=== PATIENT | female | born 1980 | race African-American/Black ===

== ENCOUNTER 2017-11-21 18:42 | Emergency (ER) | payer OTHER ==
[~2017-11-21] VITALS: Ht 157.5 cm; Wt 81.7 kg
[2017-11-21 19:25] LABS: BASOPHILS # (AUTO) 0.02 x10^3/uL (0-0.1); BASOPHILS % (AUTO) 1 % (0-1); EOSINOPHILS # (AUTO) 0.16 x10^3/uL (0-0.4); EOSINOPHILS % (AUTO) 4 % (1-7); LYMPHOCYTES # (AUTO) 1.87 x10^3/uL (1-3.4); LYMPHOCYTES % (AUTO) 45 % (22-44); MD NO; MEAN CORPUSCULAR HEMOGLOBIN 26.8 pg (27.0-34.8); MEAN CORPUSCULAR HGB CONC 32.6 g/dL (32.4-35.8); MEAN CORPUSCULAR VOLUME 82.3 fL (80-100); MEAN PLATELET VOLUME 8.3 fL (7.4-10.4); MONOCYTES # (AUTO) 0.37 x10^3/uL (0.2-0.8); MONOCYTES % (AUTO) 9 % (2-9); NEUTROPHILS # (AUTO) 1.72 x10^3/uL (1.8-6.8); NEUTROPHILS % (AUTO) 42 % (42-75); PLATELET COUNT 284 x10^3/uL (130-400); RED BLOOD COUNT 4.16 x10^6/uL (3.82-5.3); RED CELL DISTRIBUTION WIDTH 13.9 % (9.6-15.2)
[2017-11-21 19:29] LABS: ALANINE AMINOTRANSFERASE 21 U/L (12-78); ALBUMIN 3.5 g/dL (3.4-5.0); ANION GAP 9 mmol/L (5-15); CALCIUM 8.6 mg/dL (8.5-10.1); CHLORIDE 111 mmol/L (98-107)
[2017-11-21 19:34] LABS: ALKALINE PHOSPHATASE 52 U/L (45-117); BILIRUBIN,TOTAL 0.3 mg/dL (0.2-1.0); TOTAL PROTEIN 7.6 g/dL (6.4-8.2)
[2017-11-21] MEDS ORDERED: LORazepam 1MG TABLET PO ONE (21:00)
[2017-11-21] MEDS ORDERED: ONDANSETRON ODT 4 MG PO PRN (21:00)
[2017-11-21] MEDS ORDERED: MAALOX/HYOSCYAMINE/LIDOCAINE 45 ML BTL PO ONE (21:00)
[2017-11-21] MEDS ORDERED: ONDANSETRON ODT 4 MG ONE (21:02)
[2017-11-21] MEDS ORDERED: LORazepam 0.5MG TABLET ONE (21:02)
[2017-11-21] MEDS ORDERED: MAALOX/HYOSCYAMINE/LIDOCAINE 45 ML BTL ONE (21:03)
[2017-11-21 21:14] VITALS: BP 112/62
== END 2017-11-21 22:04 | disposition home or self-care (01) ==
LOC: ED 21:45
DX: K29.00 Acute gastritis without bleeding (principal); F41.1 Generalized anxiety disorder
CPT/HCPCS: 36415; 80053; 83690; 84703; 85025; 85379; 93005; 99285; Q0162

== ENCOUNTER 2018-08-07 13:00 | Emergency (ER) | payer SELFPAY ==
[~2018-08-07] VITALS: Ht 154.9 cm; Wt 83.7 kg
[2018-08-07 13:56] LABS: BASOPHILS # (AUTO) 0.02 x10^3/uL (0-0.1); BASOPHILS % (AUTO) 0 % (0-1); EOSINOPHILS # (AUTO) 0.04 x10^3/uL (0-0.4); EOSINOPHILS % (AUTO) 1 % (1-7); LYMPHOCYTES % (AUTO) 30 % (22-44); MD NO; MEAN CORPUSCULAR HEMOGLOBIN 27.5 pg (27.0-34.8); MEAN CORPUSCULAR HGB CONC 32.5 g/dL (32.4-35.8); MEAN CORPUSCULAR VOLUME 84.4 fL (80-100); MEAN PLATELET VOLUME 8.5 fL (7.4-10.4); MONOCYTES % (AUTO) 10 % (2-9); NEUTROPHILS # (AUTO) 2.94 x10^3/uL (1.8-6.8); NEUTROPHILS % (AUTO) 59 % (42-75); PLATELET COUNT 266 x10^3/uL (130-400); RED BLOOD COUNT 4.37 x10^6/uL (3.82-5.3); RED CELL DISTRIBUTION WIDTH 14.6 % (9.6-15.2)
[2018-08-07 14:03] LABS: ALBUMIN 3.9 g/dL (3.4-5.0); ANION GAP 8 mmol/L (5-15); CALCIUM 8.8 mg/dL (8.5-10.1); CHLORIDE 110 mmol/L (98-107); CREATININE 0.79 mg/dL (0.55-1.02)
--- NOTE | 2018-08-07 14:06 | NUR ---
PT AMBULATORY TO ED ROOM 18 FROM [facility] AT THIS TIME IN NAD
--- NOTE | 2018-08-07 14:41 | NUR ---
PT ASSESSED BY MD PAREDES, PT AWARE OF NEED FOR UA & STOOL SAMPLE, PT IN BED, NAD, NO NEEDS AT THIS TIME, AWAITING DISPO
[2018-08-07 15:14] LABS: CULTURE INDICATED? NO; MICROSCOPIC NOT IND
[2018-08-07 15:44] VITALS: BP 134/80
--- NOTE | 2018-08-07 15:45 | NUR ---
RN ENTERED ROOM AND PT TEARFUL AND STATES SHE "FEELS REALLY WEIRD, HANDS ARE SWEATING". PT UP FOR RECHECK, TO BEDSIDE. VSS ON RA. WCTM
[2018-08-07 16:26] LABS: FREE T4 (FREE THYROXINE) 1.29 ng/dL (0.76-1.46); THYROID STIMULATING HORMONE 1.08 mIU/L (0.358-3.740)
== END 2018-08-07 17:03 | disposition home or self-care (01) ==
LOC: ED 14:40
DX: R53.1 Weakness (principal); F41.1 Generalized anxiety disorder; R19.7 Diarrhea, unspecified; R11.2 Nausea with vomiting, unspecified
CPT/HCPCS: 36415; 80048; 81003; 82040; 84439; 84443; 84703; 85025; 93005; 99284

== ENCOUNTER 2018-09-16 10:24 | Emergency (ER) | payer MEDICAID, OTHER ==
[~2018-09-16] VITALS: Ht 154.9 cm; Wt 80.7 kg
--- NOTE | 2018-09-16 11:10 | NUR ---
pt upright on gurney awake, calm & comfortable, responds approp to staff, NAD, comfort measures provided, call light within reach.
[2018-09-16] MEDS ORDERED: LORazepam 1MG TABLET ONE (11:14)
[2018-09-16] MEDS ORDERED: LORazepam 1MG TABLET PO ONE (11:30)
[2018-09-16 12:01] VITALS: BP 127/86
--- NOTE | 2018-09-16 12:01 | NUR ---
pt remains upright on gurney awake, calm & more comfortable, responds approp to staff, NAD, comfort measures provided, call light within reach.
--- NOTE | 2018-09-16 12:25 | NUR ---
Patient given discharge instructions and they have confirmed that they understand the instructions. Patient ambulatory with steady gait.
== END 2018-09-16 12:30 | disposition home or self-care (01) ==
LOC: ED 11:23
DX: F41.1 Generalized anxiety disorder (principal); R06.4 Hyperventilation; R11.2 Nausea with vomiting, unspecified; R00.2 Palpitations
CPT/HCPCS: 93005; 99284

== ENCOUNTER 2018-09-17 09:44 | Emergency (ER) | payer MEDICAID ==
[~2018-09-17] VITALS: Ht 154.9 cm; Wt 79.9 kg
--- NOTE | 2018-09-17 10:12 | NUR ---
pt seen in the er yesterday and d/c with anxiety and 1 mg ativan. at suggestion of a pharmacy she called this am only took 0.5 mg of the ativan 1 mg she was prescribed. education provided on medication. pt in bed at this time. assessment complete. pt denies sob, cp and n/v. pt states this feels like anxiety but unable to identify specific stressors that may be causing it.
[2018-09-17] MEDS ORDERED: LORazepam 2 MG/ML, 1ML ONE (10:22)
[2018-09-17] MEDS ORDERED: SODIUM CHLORIDE 0.9% 1,000ML IVBOLUS ONE (10:30)
[2018-09-17] MEDS ORDERED: LORazepam 2 MG/ML, 1ML IVPush ONE (10:30)
[2018-09-17 11:28] LABS: ALBUMIN 3.7 g/dL (3.4-5.0); ANION GAP 10 mmol/L (5-15); CALCIUM 8.7 mg/dL (8.5-10.1); CHLORIDE 106 mmol/L (98-107)
[2018-09-17 11:29] LABS: BASOPHILS % (AUTO) 0 % (0-1); EOSINOPHILS # (AUTO) 0.02 x10^3/uL (0-0.4); EOSINOPHILS % (AUTO) 1 % (1-7); LYMPHOCYTES # (AUTO) 1.01 x10^3/uL (1-3.4); LYMPHOCYTES % (AUTO) 26 % (22-44); MEAN CORPUSCULAR HGB CONC 32.1 g/dL (32.4-35.8); MEAN PLATELET VOLUME 8.3 fL (7.4-10.4); MONOCYTES # (AUTO) 0.35 x10^3/uL (0.2-0.8); MONOCYTES % (AUTO) 9 % (2-9); NEUTROPHILS # (AUTO) 2.46 x10^3/uL (1.8-6.8); NEUTROPHILS % (AUTO) 64 % (42-75); PLATELET COUNT 260 x10^3/uL (130-400); RED BLOOD COUNT 4.28 x10^6/uL (3.82-5.3); RED CELL DISTRIBUTION WIDTH 13.6 % (9.6-15.2)
[2018-09-17 11:34] LABS: ALANINE AMINOTRANSFERASE 23 U/L (12-78); ALKALINE PHOSPHATASE 58 U/L (45-117); BILIRUBIN,TOTAL 0.7 mg/dL (0.2-1.0); CREATININE 0.79 mg/dL (0.55-1.02); TOTAL PROTEIN 7.7 g/dL (6.4-8.2); TROPONIN I < 0.015 ng/mL (0.000-0.045)
[2018-09-17 11:57] VITALS: BP 128/80
[2018-09-17 12:21] LABS: MD SCAN
== END 2018-09-17 13:12 | disposition home or self-care (01) ==
LOC: ED 13:06
DX: R07.89 Other chest pain (principal); F43.0 Acute stress reaction; F41.9 Anxiety disorder, unspecified; R00.0 Tachycardia, unspecified; Z87.891 Personal history of nicotine dependence
CPT/HCPCS: 36415; 71045; 80053; 83880; 84443; 84484; 85025; 85379; 93005; 96374; 99284; J2060; J7030

== ENCOUNTER 2018-12-19 17:41 | Emergency (ER) | payer MEDICAID ==
[~2018-12-19] VITALS: Ht 154.9 cm; Wt 90.7 kg
[2018-12-19 19:24] VITALS: BP 128/78
== END 2018-12-19 19:59 | disposition home or self-care (01) ==
LOC: ED 19:40
DX: F41.1 Generalized anxiety disorder (principal); R07.89 Other chest pain
CPT/HCPCS: 36415; 80053; 81003; 83690; 83735; 84436; 84443; 84484; 84703; 85025; 93005; 99284; Q0162

== ENCOUNTER 2019-06-17 20:30 | Emergency (ER) | payer MEDICAID, OTHER ==
[~2019-06-17] VITALS: Ht 154.9 cm; Wt 86.4 kg
[~2019-06-17 20:30] MED LIST: SERT25TA PO; ZOLP-413 PO
[2019-06-17 20:34] VITALS: BP 133/85
--- NOTE | 2019-06-17 21:26 | NUR ---
PT TO ROOM FROM LOBBY VIA WHEELCHAIR W TECH AND FAMILY. NAD NOTED.
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
--- NOTE | 2019-06-17 21:51 | NUR ---
DC EDUCATION PROVIDED, PT DEMONSTRATES UNDERSTANDING. PT AMBUALTED STEADILY TO DC WITH RN AND FAMILY.
== END 2019-06-17 21:53 | disposition home or self-care (01) ==
LOC: ED 21:47
DX: S06.0X0A Concussion without loss of consciousness, initial encounter (principal); X58.XXXA Exposure to other specified factors, initial encounter; Y93.89 Activity, other specified; Y92.009 Unspecified place in unspecified non-institutional (private) residence as the place of occurrence of the external cause; Y99.8 Other external cause status
CPT/HCPCS: 99283

== ENCOUNTER 2019-07-07 01:24 | Emergency (ER) | payer OTHER ==
[~2019-07-07] VITALS: Ht 157.5 cm; Wt 97.7 kg
[2019-07-07 02:04] VITALS: BP 128/85
[2019-07-07] MEDS ORDERED: CLON0.5T PO (02:05)
[2019-07-07 02:17] LABS: BASOPHILS # (AUTO) 0.02 x10^3/uL (0-0.1); BASOPHILS % (AUTO) 1 % (0-1); EOSINOPHILS # (AUTO) 0.09 x10^3/uL (0-0.4); EOSINOPHILS % (AUTO) 2 % (1-7); LYMPHOCYTES # (AUTO) 1.96 x10^3/uL (1-3.4); LYMPHOCYTES % (AUTO) 37 % (22-44); MD NO; MEAN CORPUSCULAR HEMOGLOBIN 26.4 pg (27.0-34.8); MEAN CORPUSCULAR HGB CONC 32.5 g/dL (32.4-35.8); MEAN CORPUSCULAR VOLUME 81.2 fL (80-100); MONOCYTES # (AUTO) 0.47 x10^3/uL (0.2-0.8); MONOCYTES % (AUTO) 9 % (2-9); NEUTROPHILS # (AUTO) 2.76 x10^3/uL (1.8-6.8); NEUTROPHILS % (AUTO) 52 % (42-75); PLATELET COUNT 266 x10^3/uL (130-400); RED BLOOD COUNT 4.28 x10^6/uL (3.82-5.3); RED CELL DISTRIBUTION WIDTH 15.1 % (9.6-15.2)
[2019-07-07 02:29] LABS: ALBUMIN 3.4 g/dL (3.4-5.0); ANION GAP 7 mmol/L (5-15); CALCIUM 8.6 mg/dL (8.5-10.1); CHLORIDE 112 mmol/L (98-107); CREATININE 0.88 mg/dL (0.55-1.02)
[2019-07-07 02:33] LABS: TROPONIN I < 0.015 ng/mL (0.000-0.045)
== END 2019-07-07 02:53 | disposition home or self-care (01) ==
LOC: ED 02:50
DX: R07.89 Other chest pain (principal); F41.1 Generalized anxiety disorder; R19.7 Diarrhea, unspecified; R11.0 Nausea
CPT/HCPCS: 36415; 71045; 80048; 82040; 84484; 85025; 93005; 99285

== ENCOUNTER 2020-07-28 10:58 | Emergency (ER) | payer OTHER ==
[~2020-07-28] VITALS: Ht 154.9 cm; Wt 100.7 kg
[~2020-07-28 10:58] MED LIST changes: +CLON0.5T PO
--- NOTE | 2020-07-28 11:05 | NUR ---
EKG done in triage.
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
[2020-07-28] MEDS ORDERED: SODIUM CHLORIDE FLUSH 10ML SYR IVF ONE (11:30)
[2020-07-28] MEDS ORDERED: ONDANSETRON 2MG/ML, 2ML IVPush ONE (11:30)
[2020-07-28] MEDS ORDERED: MORPHINE SULFATE 4 MG/ML, 1ML IVPush PRN (11:30)
[2020-07-28 11:35] LABS: BASOPHILS % (AUTO) 0 % (0-1); EOSINOPHILS % (AUTO) 2 % (1-7); LYMPHOCYTES % (AUTO) 35 % (22-44); MEAN CORPUSCULAR HEMOGLOBIN 26.3 pg (27.0-34.8); MEAN CORPUSCULAR HGB CONC 32.9 g/dL (32.4-35.8); MEAN PLATELET VOLUME 7.8 fL (7.4-10.4); MONOCYTES % (AUTO) 11 % (2-9); NEUTROPHILS % (AUTO) 53 % (42-75); PLATELET COUNT 294 x10^3/uL (130-400); RED BLOOD COUNT 4.37 x10^6/uL (3.82-5.3)
[2020-07-28 11:43] LABS: MD NO
[2020-07-28 11:46] LABS: ALANINE AMINOTRANSFERASE 24 U/L (12-78); ALBUMIN 3.6 g/dL (3.4-5.0); ANION GAP 7 mmol/L (5-15); CALCIUM 8.7 mg/dL (8.5-10.1); CHLORIDE 111 mmol/L (98-107); CREATININE 0.78 mg/dL (0.55-1.02)
[2020-07-28] MEDS ORDERED: MORPHINE SULFATE 4 MG/ML, 1ML ONE (11:48)
[2020-07-28] MEDS ORDERED: ONDANSETRON 2MG/ML, 2ML ONE (11:48)
[2020-07-28 11:51] LABS: ALKALINE PHOSPHATASE 65 U/L (45-117); BILIRUBIN,TOTAL 0.4 mg/dL (0.2-1.0); TOTAL PROTEIN 7.9 g/dL (6.4-8.2)
[2020-07-28 12:27] VITALS: BP 133/79
--- NOTE | 2020-07-28 12:27 | NUR ---
BREAK RN: PT RESTING IN NAD, REPORTS PAIN DECREASED TO 5/10 AFTER MEDICATION. VSS.
[2020-07-28 12:33] LABS: MICROSCOPIC NOT IND
== END 2020-07-28 12:51 | disposition home or self-care (01) ==
LOC: ED 11:41
DX: K29.00 Acute gastritis without bleeding (principal); G89.29 Other chronic pain; R10.13 Epigastric pain; R11.2 Nausea with vomiting, unspecified; R19.7 Diarrhea, unspecified
CPT/HCPCS: 36415; 76700; 80053; 81003; 83690; 84703; 85025; 93005; 96374; 96375; 99285; J2270; J2405